=== PATIENT | male | born 1955 | race Caucasian/White ===

== ENCOUNTER 2023-06-09 13:03 | Emergency (ER) | payer MEDICARE, MEDICAID ==
[~2023-06-09] VITALS: Ht 172 cm; Wt 82.0 kg
[~2023-06-09 13:03] MED LIST: AC325T; ACET325T38 PO; AGM875T PO; ARPZ20T PO; AZIT-21 PO; BNZT1T; BNZT1T PO; CHLO200T9; CLNZ.5T; CLON0.5T3 PO; CLON1TAB3 PO; CYAN500T2 PO; CYAN50TA PO; DIVA-20; DIVA125C3 PO; DIVA125T2 PO; DVL500TSR; FAMO20TA13 PO; FAMO20TA5 PO; FESO4TAB PO; FESO4TAB2 PO; FOLI0.4T2; FOLI1TAB24 PO; HALO2TAB12; HYDR-700 PO; KETO120S5 TP; KETO15CR TOP; LEVO200T30 PO; LISI-556 PO; LORA0.5T; LORA10CA PO; LORA10TA7 PO; LVT.1T PO; MAGN-47 PO; MULT1TAB63; OMEP-10 PO; OMEP20CA12 PO; OMEP20CA6 PO; RISP0.5T2 PO; RISP4TAB PO; RISP4TAB34 PO; RIVA20TA2 PO; RSP2T; RSP3T; Rivaroxaban PO; VITAMIN B; ZIPR20CA26 PO; ZIPR80CA9 PO; ZPR80C PO; [UNRECOGNIZED DRUG - CODE]
[2023-06-09 13:18] LABS: BASOPHILS % (AUTO) 1 % (0-10); EOSINOPHILS # (AUTO) 0.1 10^3/uL (0.0-0.3); EOSINOPHILS % (AUTO) 2 % (0-10); HEMATOCRIT 43 % (40-54); LYMPHOCYTES # (AUTO) 2.3 10^3/uL (1.0-4.0); LYMPHOCYTES % (AUTO) 37 % (12-44); MEAN CORPUSCULAR HEMOGLOBIN 32 pg (25-34); MEAN CORPUSCULAR HGB CONC 33 g/dL (32-36); MEAN CORPUSCULAR VOLUME 98 fL (80-99); MEAN PLATELET VOLUME 8.8 fL (9.0-12.2); MONOCYTES # (AUTO) 0.8 10^3/uL (0.0-1.0); MONOCYTES % (AUTO) 14 % (0-12); NEUTROPHILS # (AUTO) 2.9 10^3/uL (1.8-7.8); NEUTROPHILS % (AUTO) 46 % (42-75); PLATELET COUNT 216 10^3/uL (130-400); WHITE BLOOD COUNT 6.2 10^3/uL (4.3-11.0)
[2023-06-09 13:29] LABS: INR 0.9 (0.8-1.4); PROTHROMBIN TIME PATIENT 12.5 SEC (12.2-14.7)
[2023-06-09 13:30] LABS: ALBUMIN 3.6 GM/DL (3.2-4.5)
[2023-06-09 13:31] LABS: CHLORIDE 103 MMOL/L (98-107); POTASSIUM 4.7 MMOL/L (3.6-5.0); SODIUM 140 MMOL/L (135-145)
[2023-06-09 13:32] LABS: CALCIUM 8.6 MG/DL (8.5-10.1)
[2023-06-09 13:33] LABS: GLUCOSE 93 MG/DL (70-105)
--- NOTE | 2023-06-09 13:33 | Diagnostic Imaging Report ---
Indication: Chest pain, hypertension. COMPARISON: 01/16/2015 Cardiomediastinal and hilar contours are stable and unremarkable. Lungs clear. No failure, effusion or pneumothorax. IMPRESSION: Stable chest. Dictated by: Dictated on workstation # [id number]
[2023-06-09 13:34] LABS: CARBON DIOXIDE 26 MMOL/L (21-32)
[2023-06-09 13:35] LABS: BILIRUBIN,TOTAL 0.3 MG/DL (0.1-1.0)
[2023-06-09 13:37] LABS: ALKALINE PHOSPHATASE 69 U/L (40-136); CREATININE SERUM 1.06 MG/DL (0.60-1.30); GFR ESTIMATED 77
[2023-06-09 13:38] LABS: BUN/CREATININE RATIO 12
[2023-06-09 13:39] LABS: MAGNESIUM 2.3 MG/DL (1.6-2.4)
[2023-06-09 13:40] LABS: ALANINE AMINOTRANSFERASE 13 U/L (0-55)
[2023-06-09 13:47] LABS: VALPROIC ACID 86.4 UG/ML (50.0-100.0)
--- NOTE | 2023-06-09 13:51 | ED Chest Pain ---
General Chief Complaint: Chest Pain Stated Complaint: CHEST PAINS | PALE | HIGH BLOOD PRESSURE Nursing Triage Note: pt states he is not feeling too good today, hurts everywhere. pt is from [place], staff state the pt had been c/o chest pain, heart hurting, high bp, very emotional. state it is not at his baseline Source: patient, old records, other (Chart from [facility]), caregiver Exam Limitations: other (Intellectual disability) History of Present Illness Date Seen by Provider: Jun 09, 2023 Time Seen by Provider: 13:10 Allergies and Home Medications Allergies Coded Allergies: Phenothiazines (Verified Allergy, Unknown, 09/10/08) fluphenazine (Verified Allergy, Unknown, 07/17/10) ONLY WITH HIGH DOSES pseudoephedrine (Verified Allergy, Unknown, 11/14/05) triprolidine (Verified Allergy, Unknown, 11/14/05) Patient Home Medication List Acetaminophen (Tylenol) 325 Mg Tablet, 650 MG PO EVERY 4-6 HOURS PRN for MILD TO MODERATE PAIN, (Reported) Entered as Reported by: NORMA TOUSSAINT on 01/17/15 08 Amoxicillin/Clavulanate K (Augmentin 875 Mg Tablet) 875 Mg Tab, 875 MG PO BID WITH MEALS Prescribed by: ANGELINA ONTIVEROS on 01/17/15 1130 Benztropine Mesylate (Cogentin Tablet) 1 Mg Tab, 1 MG PO BID, (Reported) Entered as Reported by: BRIANNA TATE on 01/16/15 1745 Cyanocobalamin (Vitamin B-12) 500 Mcg Tablet, 500 MCG PO DAILY, (Reported) Entered as Reported by: NORMA TOUSSAINT on 01/17/15 08 Divalproex Sodium (Divalproex Sodium) 125 Mg Cap.sprink, 1,125 MG PO BID, (Reported) Entered as Reported by: NORMA TOUSSAINT on 01/17/15 08 Famotidine (Pepcid) 20 Mg Tablet, 20 MG PO 0800,1200, (Reported) Entered as Reported by: NORMA TOUSSAINT on 01/17/15 08 Fesoterodine Fumarate (Toviaz) 4 Mg Tab.sr.24h, 4 MG PO HS, (Reported) Entered as Reported by: NORMA TOUSSAINT on 01/17/15 08 Folic Acid (Folic Acid) 1 Mg Tablet, 0.5 MG PO DAILY, (Reported) Entered as Reported by: BRIANNA TATE on 01/16/15 174 Ketoconazole (Nizoral) 120 Ml Shampoo, TP EVERY 7 DAYS, (Reported) Entered as Reported by: NORMA TOUSSAINT on 01/17/15855 Levothyroxine Sodium (Levothyroxine 100 Mcg Tab) 100 Mcg Tablet, 100 MCG PO DAILY, (Reported) Entered as Reported by: NORMA TOUSSAINT on 01/17/15855 Lisinopril (Lisinopril) 5 Mg Tablet, 5 MG PO DAILY, (Reported) Entered as Reported by: NORMA TOUSSAINT on 01/17/15855 Loratadine (Loratadine) 10 Mg Tablet, 10 MG PO DAILY, (Reported) Entered as Reported by: NORMA TOUSSAINT on 01/17/15855 Magnesium Hydroxide (Milk Of Magnesia) 400 Mg/5 Ml Oral.susp, 30 ML PO HS PRN for CONSTIPATION, (Reported) Entered as Reported by: NORMA TOUSSAINT on 01/17/15855 Omeprazole (Omeprazole) 20 Mg Capsule.dr, 20 MG PO HS, (Reported) Entered as Reported by: NORMA TOUSSAINT on 01/17/15855 Risperidone (Risperidone) 4 Mg Tablet, 4 MG PO HS, (Reported) Entered as Reported by: NORMA TOUSSAINT on 01/17/15855 Risperidone (Risperidone) 0.5 Mg Tablet, 0.5 MG PO 0800,1200, (Reported) Entered as Reported by: NORMA TOUSSAINT on 01/17/15855 Rivaroxaban (Xarelto Tablet) 20 Mg Tablet, 20 MG PO DAILY@1700 Prescribed by: ANGELINA ONTIVEROS on 01/17/15 113 Ziprasidone Hcl (Ziprasidone Hcl) 80 Mg Capsule, 80 MG PO 1700,2100, (Reported) Entered as Reported by: NORMA TOUSSAINT on 01/17/15855 [Rivaroxaban] 15 MG TABLET, 15 MG PO BID Prescribed by: ANGELINA ONTIVEROS on 01/17/15 1130 Past Kjomsro-Cwgwfd-Dtccll Hx Patient Social History Tobacco Use?: Yes Tobacco type used: Cigarettes Smoking Status: Current Everyday Smoker Substance use?: No Alcohol Use?: No Pt feels they are or have been: No Past Medical History Surgery/Hospitalization HX: pe, thyroid, hepatitis,htn,copd,dm,diverticulits Asthma Hypertension Reproductive Disorders: No Hepatitis Bipolar, Personality Disorder, Schizophrenia, Depression Family Medical History Colon cancer 19 FATHER Diabetes mellitus 19 FATHER 19 MOTHER G8 BROTHER G8 SISTER Hypercholesterolemia G8 BROTHER G8 SISTER Hypertension G8 BROTHER G8 SISTER Myocardial infarction 19 MOTHER G8 BROTHER No Pertinent Family Hx Physical Exam Vital Signs Vital Signs - First Documented 06/09/23 13:08 Temp 37.2 Pulse 102 Resp 20 B/P (MAP) 173/99 (123) Pulse Ox 95 Capillary Refill : Height, Weight, BMI Height: 0'68.00" Weight: 164lbs. 5.0oz. 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 from o ptometry notes) Progress/Results/Core Measures Results/Orders Lab Results Laboratory Tests Test 06/09/23 13:13 06/09/23 16:15 Range/Units White Blood Count 6.2 4.3-11.0 10^3/uL Red Blood Count 4.36 4.30-5.52 10^6/uL Hemoglobin 14.0 13.3-17.7 g/dL Hematocrit 43 40-54 % Mean Corpuscular Volume 98 80-99 fL Mean Corpuscular Hemoglobin 32 25-34 pg Mean Corpuscular Hemoglobin Concent 33 32-36 g/dL Red Cell Distribution Width 14.5 10.0-14.5 % Platelet Count 216 130-400 10^3/uL Mean Platelet Volume 8.8 L 9.0-12.2 fL Immature Granulocyte % (Auto) 1 % Neutrophils (%) (Auto) 46 42-75 % Lymphocytes (%) (Auto) 37 12-44 % Monocytes (%) (Auto) 14 H 0-12 % Eosinophils (%) (Auto) 2 0-10 % Basophils (%) (Auto) 1 0-10 % Neutrophils # (Auto) 2.9 1.8-7.8 10^3/uL Lymphocytes # (Auto) 2.3 1.0-4.0 10^3/uL Monocytes # (Auto) 0.8 0.0-1.0 10^3/uL Eosinophils # (Auto) 0.1 0.0-0.3 10^3/uL Basophils # (Auto) 0.0 0.0-0.1 10^3/uL Immature Granulocyte # (Auto) 0.1 0.0-0.1 10^3/uL Prothrombin Time 12.5 12.2-14.7 SEC INR Comment 0.9 0.8-1.4 Activated Partial Thromboplast Time 27 24-35 SEC D-Dimer 0.56 H 0.00-0.49 UG/ML Sodium Level 140 135-145 MMOL/L Potassium Level 4.7 3.6-5.0 MMOL/L Chloride Level 103 98-107 MMOL/L Carbon Dioxide Level 26 21-32 MMOL/L Anion Gap 11 5-14 MMOL/L Blood Urea Nitrogen 13 7-18 MG/DL Creatinine 1.06 0.60-1.30 MG/DL Estimat Glomerular Filtration Rate 77 BUN/Creatinine Ratio 12 Glucose Level 93 70-105 MG/DL Calcium Level 8.6 8.5-10.1 MG/DL Corrected Calcium 8.9 8.5-10.1 MG/DL Magnesium Level 2.3 1.6-2.4 MG/DL Total Bilirubin 0.3 0.1-1.0 MG/DL Aspartate Amino Transf (AST/SGOT) 23 5-34 U/L Alanine Aminotransferase (ALT/SGPT) 13 0-55 U/L Alkaline Phosphatase 69 40-136 U/L Myoglobin 59.4 10.0-92.0 NG/ML Troponin I < 0.028 < 0.028 <0.028 NG/ML Total Protein 7.0 6.4-8.2 GM/DL Albumin 3.6 3.2-4.5 GM/DL Thyroid Stimulating Hormone (TSH) 1.20 0.35-4.94 UIU/ML Free Thyroxine 1.26 0.70-1.48 NG/DL Valproic Acid (Depakene) Level 86.4 50.0-100.0 UG/ML My Orders Orders - BARBARA HAMEED MD Ekg Tracing (06/09/23 13:07) Cbc With Automated Diff (06/09/23 13:10) Magnesium (06/09/23 13:10) Chest 1 View, Ap/Pa Only (06/09/23 13:10) Comprehensive Metabolic Panel (06/09/23 13:10) Myoglobin Serum (06/09/23 13:10) Protime With Inr (06/09/23 13:10) Partial Thromboplastin Time (06/09/23 13:10) O2 (06/09/23 13:10) Monitor-Rhythm Ecg Trace Only (06/09/23 13:10) Lipid Panel (06/10/23 06:00) Ed Iv/Invasive Line Start (06/09/23 13:10) Troponin I Bremer (06/09/23 13:10) Thyroid Stimulating Hormone (06/09/23 13:11) Free T4 (Free Thyroxine) (06/09/23 13:11) Valproic Acid (06/09/23 13:11) Fibrin Degradation Products (06/09/23 13:38) Ct Head Wo-R/O Stroke (06/09/23 13:45) Troponin I Bremer (06/09/23 16:15) Ct Angio Chest W (R/O Pe) (06/09/23 14:20) Iohexol Injection (Omnipaque 350 Mg/Ml 1 (06/09/23 15:00) Received Contrast (Hold Metformin- Contr (06/09/23 15:00) Ns (Ivpb) 100 Ml (Sodium Chloride 0.9% 1 (06/09/23 15:00) Ekg Tracing (06/09/23 15:15) Medications Given in ED Current Medications Medications Dose Ordered Sig/Gonzalo Route Start Time Stop Time Status Last Admin Dose Admin Iohexol 100 ml ONCE ONCE IV 06/09/23 15:00 06/09/23 15:01 DC 06/09/23 14:56 72 ML Sodium Chloride 100 ml ONCE ONCE IV 06/09/23 15:00 06/09/23 15:01 DC 06/09/23 14:56 80 ML Vital Signs/I&O 06/09/23 13:08 Temp 37.2 Pulse 102 Resp 20 B/P (MAP) 173/99 (123) Pulse Ox 95 Blood Pressure Mean: 123 Progress Progress Note : Time: 13:48 Progress Note I began work on this case at 1310 with review of chart and medications which prompted placement of initial orders. I was in the room at 1324 to examine and interview the patient. Staff from [facility] was interviewed along with the pa torres. His chart from [facility] was also reviewed. Thyroid and valproic acid levels were included in his work-up based on his medication list. Patient seemed to have an irregularity in his right pupil with disrupted vision. He has had cataracts and possible cataract surgery in the past. I have contacted Dr. Humphries, his golf course starter to determine if these changes are new or chronic. In the meantime, CT of the head will be obtained while I am awaiting a callback from Dr. Humphries. Chest pain work-up is being pursued including D-dimer due to his history of pulmonary embolus. Based on his medication list, it does not appear he is presently anticoagulated. Patient is denying any chest pain or other symptoms at present. Staff report that he is near baseline. His blood pressure seems to have normalized as well at 127/81. He has a normal sinus rhythm with a rate of 85 presently. Initial ECG Impression Date: Jun 09, 2023 Initial ECG Impression Time: 13:13 Initial ECG Rate: 92 Initial ECG Rhythm: Normal Sinus Comment Sinus rhythm with no ST elevation. Subtle ST changes particularly in lead II and V2 are nondiagnostic and similar to prior EKG from 2015. No definite ischemic changes are noted. Short CO interval of 160 ms with no other significant abnormal intervals or axis deviation. EKG : EKG Time: 16:15 Rate: 94 Rhythm: Normal Sinus Comment Sinus rhythm with slightly shortened CO interval at [address] elevation or depression. No other abnormal intervals or axis deviation. No dynamic change from prior. Departure Impression Primary Impression: Atypical chest pain Additional Impressions: Episode of hypertension Altered mental status Qualified Codes: R41.82 - Altered mental status, unspecified History of pulmonary embolism Disposition: 01 HOME, SELF-CARE Condition: Improved Departure-Patient Inst. Decision time for Depature: 17:05 Referrals: HENRIQUE DICKSON MD (PCP/Family) Primary Care Physician Patient Instructions: Chest Pain Add. Discharge Instructions: Continue with your medications as previously directed. Follow-up with your primary care provider soon as possible. Return to care if you have worsening symptoms or recurrent episodes of chest pain. All discharge instructions reviewed with patient and/or family. Voiced understanding. BARBARA HAMEED MD Jun 09, 2023 13:51
[2023-06-09 14:02] LABS: FREE T4 (FREE THYROXINE) 1.26 NG/DL (0.70-1.48)
--- NOTE | 2023-06-09 14:20 | Diagnostic Imaging Report ---
INDICATION: Hypertension, headache, and malaise. TECHNIQUE: Multiple contiguous axial images were obtained through the brain without the use of intravenous contrast. Auto Exposure Controls were utilized during the CT exam to meet ALARA standards for radiation dose reduction. COMPARISON: There is no prior study for comparison. FINDINGS: There are mild diffuse atrophic changes. There were no extra-axial fluid collections. No intracranial hemorrhage. No intracranial mass or mass effect. No midline shift. The ventricles are normal in size and position. There were no focal parenchymal abnormalities in the brain. Calvarial windows are unremarkable. There is a retention cyst or polyp in the right maxillary sinus inferiorly. IMPRESSION: Mild atrophic changes with no acute intracranial abnormality. Dictated by: Dictated on workstation # [id number]
[2023-06-09] MEDS ORDERED: IOHEXOL 350 MG/ML 100 ML (OMNIPAQUE 350) VIAL IV ONE (15:00)
[2023-06-09] MEDS ORDERED: NS 100 ML (IVPB) BAG IV ONE (15:00)
[2023-06-09] MEDS ORDERED: HOLD METFORMIN - RECEIVED CONTRAST 20 ML VIAL IV SCH (15:00)
--- NOTE | 2023-06-09 15:28 | Diagnostic Imaging Report ---
INDICATION: Acute onset chest pain, elevated D-dimer, history of pulmonary embolism. CTA CHEST: TECHNIQUE: Thin axial sections through the chest were obtained following an intravenous contrast bolus. Multiplanar MIP images reconstructed and reviewed. Low-dose technique was used. FINDINGS: There is some basilar discoid atelectasis in the right lower lateral chest. There are no effusions or pneumothoraces. There is no hilar or mediastinal lymphadenopathy. Thoracic aorta appears normal. There are no pulmonary emboli. There is no right ventricular strain. IMPRESSION: Unremarkable CTA chest. Dictated by: Dictated on workstation # [id number]
[2023-06-09 17:10] VITALS: BP 125/99
== END 2023-06-09 17:10 | disposition home or self-care (01) ==
LOC: EDUNIT# 13:03 → ER 13:06
DX: I10 Essential (primary) hypertension (principal); R41.82 Altered mental status, unspecified; F17.210 Nicotine dependence, cigarettes, uncomplicated; Z86.711 Personal history of pulmonary embolism
CPT/HCPCS: 36415; 70450; 71045; 71275; 80053; 80164; 83735; 83874; 84439; 84443; 84484; 85025; 85379; 85610; 85730; 93005; 93041